=== PATIENT | female | born 1955 | race Two or more races ===

== ENCOUNTER → 2020-03-18 | Outpatient (CLI) | payer OTHER, BC ==
[~2020-03-18] MED LIST: OMNIPAQUE 350 MG/ML, 100ML BOTTLE ONE
== END | disposition home or self-care (01) ==
LOC: CFH 14:32
PROVIDERS: ATTEND Family Medicine
DX: R91.8 Other nonspecific abnormal finding of lung field (principal); K76.0 Fatty (change of) liver, not elsewhere classified
CPT/HCPCS: 71275; 82565; Q9967